=== PATIENT | female | born 1965 | race Two or more races ===

== ENCOUNTER 2024-09-18 00:31 | Inpatient (IN) | payer MEDICARE, MEDICAID, SELFPAY ==
[2024-09-18] VITALS (22 sets, daily range): BP systolic 102–131; BP diastolic 62–96; PULSE 68–155; RESP 17–96; TEMP 36.6–38.9; O2SAT 93–98; BMI 29.0; BMI 30.3
--- NOTE | 2024-09-18 00:51 | EKG_ITS ---
[facility] Test Date: 2024-09-18 Pat Name: MECCA SHELTON Department: Room: - Gender: Female Promotions Representative: : 1965 Requested By: Ángel Polanco ([facility]) Order Number: [id number] Reading MD: Ángel Polanco ([facility]) Measurements Intervals [place] Rate: 98 P: 52 [place]: 144 QRS: 25 QRSD: 98 T: 2 QT: 367 QTc: 471 Interpretive Statements SINUS RHYTHM NONSPECIFIC T-WAVE ABNORMALITY Compared to ECG 11/05/2021 15:00:28 T-wave abnormality now present /store/S0/[id number]
--- NOTE | 2024-09-18 01:00 | XR_ITS ---
Examination: CT brain head without contrast. 2-D sagittal coronal reconstructions Date and time of exam:04/18/2020 0111 hrs. Indications: Onset headaches nausea vomiting today CTDI: vol (mGy):44:30 DLP: (mGycm):877 Technique: Multiple CT axial sections of the brain have been obtained, 5 mm slice thickness. Contrast has not been administered. 2-D sagittal, coronal reconstructions have been obtained Low dose protocols were performed. One or more of the following dose reduction techniques were used; automated exposure control, adjustment of the mA and/or KV according to patient size, use of iterative reconstruction technique. Findings: No significant ventricular enlargement. Intra-axial or extra-axial hemorrhage density is not seen. No mass effect or midline shift Basal cisterns are not remarkable. Fourth ventricle is midline. Cranial vault intact. Impression: Negative for acute hemorrhage, mass effect or midline shift Advise clinical correlation follow-up accordingly
--- NOTE | 2024-09-18 01:01 | PD.EDRME ---
Rapid Medical Screening Exam RME Arrival date/time: 09/18/24 00:31 51-year-old female presents emergency department complaining of headache and vomiting since yesterday. Chief Complaint: Headache Time Seen by Provider: 09/18/24 00:34 Vital signs: Vital Signs Temperature 98.2 F 09/18/24 00:49 Pulse Rate 155 H 09/18/24 00:49 Respiratory Rate 18 09/18/24 00:49 Blood Pressure 124/76 09/18/24 00:49 Pulse Oximetry (%) 97 09/18/24 00:49 Oxygen Delivery Method Room Air 09/18/24 00:49 Vital signs reviewed by provider: Yes
[2024-09-18] MEDS: ONDANSETRON ODT 4 MG TABRAP PO (01:17)
[2024-09-18 01:33] LABS: Basophils % (Auto) 0 % (0-2.5); Eosinophils % (Auto) 0 % (0-10); Hematocrit 41.4 % (36.0-46.0); Hemoglobin 14.9 g/dL (12.0-16.0); Immature Granulocytes % (Auto) 0 % (0-0); Immature Granulocytes Auto 0.05 Thou/mm3 (0.00-0.00); Lymphocytes # (Auto) 1.4 Thou/mm3 (1.0-4.8); Lymphocytes % (Auto) 9 % (10-50); Mean Corpuscular Volume 86 fL (80-100); Monocytes # (Auto) 0.9 Thou/mm3 (0.0-0.8); Monocytes % (Auto) 6 % (0-12); Neutrophils # (Auto) 13.8 Thou/mm3 (1.8-7.7); Neutrophils % (Auto) 85 % (37-80); Nucleated Red Blood Cell % 0 /100 WBC (0); Platelet Count 197 Thou/mm3 (140-440); RDW Standard Deviation 38.3 fL (36.4-46.3); White Blood Count 16.1 Thou/mm3 (3.6-11.0)
--- NOTE | 2024-09-18 01:37 | PRELIM_ITS ---
CT scan of the head without intravenous contrast (axial sections with sagittal and coronal reformats) . September 18, 2024 0111 hoursClinical History: Headache with vomiting.No prior study is available for comparison. Findings:The evaluation is slightly limited due to motion artifact. No definitive eviden ce of intracranial hemorrhage, mass effect or midline shift. The ventricles and CSF spaces are unrema rkable. The calvarium is unremarkable. The mastoid air cells and the visualized paranasal sinuses are clear.Impression:No definitive evidence of intracranial hemorrhage, mass effect or midline shift.Oth er findings as described above. Suggest clinical correlation and follow up accordingly. Report Elec tronically Signed By: Sukhdev Apodaca 09/18/2024 1:37:13 AM [EST]
[2024-09-18 01:45] LABS: Alanine Aminotransferase 14 U/L (10-49); Albumin, Serum 4.6 gm/dL (3.5-5.0); Albumin/Globulin Ratio 1.8 (1.2-2.2); Alkaline Phosphatase 91 U/L (46-116); Anion Gap 10 (7-16); Aspartate Amino Transferase 21 U/L (0-34); BUN/Creatinine Ratio 11 Ratio (12-20); Bilirubin,Total 1.5 mg/dL (0.3-1.2); Blood Urea Nitrogen 9 mg/dL (9-23); Calcium 9.8 mg/dL (8.3-10.6); Calcium (Corrected) 9.8 mg/dL (8.5-10.1); Carbon Dioxide 25.3 mMol/L (20.0-31.0); Chloride 104 mMol/L (98-107); Creatinine (Component) 0.8 mg/dL (0.6-1.3); Estimated Creatinine Clearance 70.4 mL/min (>60); Globulin 2.6 gm/dL (2.3-3.5); Glucose 177 mg/dL (74-106); Lipase 27 U/L (12-53); Osmolality,Calculated 280 (275-295); Potassium 3.5 mMol/L (3.4-5.1); Sodium 139 mMol/L (136-145); Total Protein 7.2 gm/dL (5.7-8.2); eGFR > 60 See Note
[2024-09-18 02:21] LABS: Collection Type, Urine Clean Catch
[2024-09-18 02:29] LABS: Bacteria,Urine 3+; Bilirubin,Urine Negative (Negative); Blood,Urine 1+ (Negative); Clarity,Urine Turbid (Clear/Hazy); Color,Urine Yellow (Lt Yel-Yel); Culture Indicated,Urine Yes; Glucose, Urine Negative (Negative); Ketones,Urine 1+ (Negative); Leukocyte Esterase,Urine Positive (Negative); Nitrite,Urine Positive (Negative); PH,Urine 6.5 (5.0-7.0); Protein,Urine 2+ (Neg - Trace); RBC,Urine 34 /hpf (0-3); Specific Gravity,Urine 1.019 (1.001-1.035); Squamous Epithelial Cell,Urine 3 /hpf (0-5); Urobilinogen,Urine Negative mg/dL (0.0-1.0); WBC,Urine 158 /hpf (0-5)
[2024-09-18 02:36] LABS: Amphetamine/Methamp Scrn,U Negative (Negative); Barbiturate Screen,Urine Negative (Negative); Benzodiazepines Screen,Urine Negative (Negative); Benzoylecgonine Screen, Ur Negative (Negative); Fentanyl Screen,Urine Negative (Negative); Opiate Screen,Urine Negative (Negative); THC Screen,Urine Negative (Negative)
--- NOTE | 2024-09-18 04:30 | EDNOTE_ITS ---
ED Headache RME/HPI General Chief Complaint: Headache Stated Complaint: HEADACHE,N/V SINCE YEST Time Seen by Provider: 09/18/24 00:34 Arrival date/time: 09/18/24 00:31 Limitations: no limitations RME / HPI RME / HPI Narrative: 09/18/24 00:31 51-year-old female presents emergency department complaining of headache and vomiting since yesterday. ----- Dr. Allen's Main ED Evaluation: 58yo female with pmhx HTN presents to the ED for complaints of a headache and vomiting. Patient states she's had a frontal headache for the last 2-3 days, reporting she had 3 emetic episodes at home yes terday. She endorses associated burning with urination and body aches since Tuesday. She denies any back pain, abdominal pain or any other associated symptoms. No known allergies. Related Data Home Medications ?Medication ?Instructions ?Recorded ?Confirmed fluoxetine 20 mg capsule (Prozac) 20 mg PO QAM #0 caps 08/01/17 Previous Rx's ?Medication ?Instructions ?Recorded lorazepam 1 mg tablet 1 mg PO TID PRN ANXIETY #30 tabs 09/03/15 benzonatate 200 mg capsule 200 mg PO BID PRN cough #30 caps 11/05/21 hydrocodone 5 mg-acetaminophen 325 1 tab PO Q6H PRN pain #10 tabs 12/18/23 mg tablet cephalexin 500 mg capsule 500 mg PO TID #21 caps 09/18/24 Allergies Allergy/AdvReac Type Severity Reaction Status Date / Time No Known Allergies Allergy Verified 09/18/24 00:35 Review of Systems Review of Systems Systems Reviewed: All systems reviewed, normal except as documented Past Medical History Past Medical History CARDIAC: Positive Hypertension; Negative Cardiac Disorders or Congestive Heart Failure RESPIRATORY: Negative Chronic Obstructive Pulmonary Disease (COPD) or Asthma GENITOURINARY: Negative Renal Disease ENDOCRINE: Negative Diabetes Mellitus Type 1 or Diabetes Mellitus Type 2 HEMATOLOGIC: Negative Sickle Cell Disease Social History SMOKING STATUS: Never smoker ED Exam General Limitations: Present no limitations General appearance: Present alert, in no apparent distress and other (appears fatigued) Head Head exam: Present atraumatic Eye Eye exam: Present PERRL, EOMI and other (eyes are sunken in, no photophobia) ENT ENT exam: Present normal exam, normal oropharynx and mucous membranes dry Neck Neck exam: Present normal inspection, full ROM and trachea midline Chest Chest inspection: Present normal inspection and symmetric chest wall rise Respiratory Respiratory exam: Present normal lung sounds bilaterally Cardiovascular Cardiovascular exam: Present normal rhythm, tachycardia and normal heart sounds Abdominal Exam Abdominal exam: Present soft and normal bowel sounds Extremities Exam Extremities exam: Present normal inspection and full ROM Back Exam Back exam: Present normal inspection and full ROM; Absent CVA tenderness (R) or CVA tenderness (L) Neurological Exam Neurological exam: Present alert, oriented X3 and CN II-XII intact Psychiatric Psychiatric exam: Present normal affect and normal mood Skin Skin exam: Present warm, dry, intact, normal color and other (normal skin turgor, normal cap refill) Course Course Course Narrative: 0536: Sepsis alert initiated. Orders made at this time are congruent with ED Adult Sepsis Order List. Re-evaluation is to be completed. NS IVF was started at 0459. CXR is ordered for determining the etiology of fever. Quality Measures Possible source: genitourinary Blood cultures ordered: yes Antibiotic ordered: Yes Pertinent labs: 09/18/24 06:00 Lactic Acid 0.8 mMol/L (0.4-2.0) Procalcitonin Pending sepsis Orders Category Date Time Status Bedside Influenza A&B Antigen Test NOW Care 09/18/24 01:01 Completed Architectural Project Manager STAT Care 09/18/24 05:34 Active Continuous Pulse Oximetry STAT Care 09/18/24 05:35 Active EKG (ED ONLY) *Do not use* NOW Care 09/18/24 00:51 Completed In and Out Catheter X1PRN Care 09/18/24 05:34 Active NPO STAT Care 09/18/24 05:35 Active Strict Intake and Output Routine Care 09/18/24 05:[address] head/brain wo con Stat Exams 09/18/24 01:00 Taken EKG (ED Only) Stat Exams 09/18/24 00:51 Ordered XR chest 1V SEPSIS PROTOCOL Stat Exams 09/18/24 05:36 Taken B-Type Natriuretic Peptide Stat Lab 09/18/24 06:00 Received Blood Culture (Lab) Stat Lab 09/18/24 06:00 Received CBC Stat Lab 09/18/24 01:17 Completed CMP [Comprehensive Metabolic Panel] Stat Lab 09/18/24 01:17 Completed Drug Screen,Urine Stat Lab 09/18/24 02:00 Completed LDH (Lactate Dehydrogenase) Stat Lab 09/18/24 06:00 Received Lactate (Lactic Acid) Stat Lab 09/18/24 06:00 Completed Lipase Stat Lab 09/18/24 01:17 Completed Magnesium Stat Lab 09/18/24 06:00 Received Partial Thromboplastin Time Stat Lab 09/18/24 06:00 Received Phosphorous Stat Lab 09/18/24 06:00 Received Procalcitonin Stat Lab 09/18/24 06:00 Received Prothrombin Time with INR Stat Lab 09/18/24 06:00 Received Troponin I Stat Lab 09/18/24 06:00 Received Urinalysis Stat Lab 09/18/24 05:34 Ordered Urinalysis, C/S if Indicated Stat Lab 09/18/24 02:00 Completed Urine Culture Stat Lab 09/18/24 02:00 Received Urine Culture Stat Lab 09/18/24 05:34 Ordered Acetaminophen Tab [Tylenol Tab] Med 09/18/24 05:29 Discontinued 650 mg PO X1 ONE DiphenhydrAMINE INJ [Benadryl Inj] Med 09/18/24 04:30 Discontinued 25 mg IVP X1 ONE Ketorolac Inj [Toradol Inj] Med 09/18/24 04:30 Discontinued 30 mg IVP X1 ONE Metoclopramide Inj [Reglan Inj] Med 09/18/24 04:31 Discontinued 5 mg IVP X1 ONE Ondansetron Inj [Zofran Inj] Med 09/18/24 05:34 Active 4 mg IV Q6HR PRN Ondansetron Inj [Zofran Inj] Med 09/18/24 04:32 Discontinued 4 mg IV X1 ONE Ondansetron Odt [Zofran Odt] Med 09/18/24 01:00 Discontinued 4 mg PO X1 ONE Sodium Chloride 0.9% 1000 ml [Ns] 1,000 ml Med 09/18/24 04:30 Discontinued IV 999 mls/hr Sodium Chloride 0.9% 1000 ml [Ns] 1,503 ml Med 09/18/24 05:34 Active IV 1,503 mls/hr cefTRIAXone [Rocephin] 1,000 mg Med 09/18/24 05:34 Discontinued Sodium Chloride 0.9% (P) [Ns 0.9% (P)] 50 ml IV X1 cefTRIAXone [Rocephin] 1,000 mg Med 09/18/24 04:31 Discontinued Sodium Chloride 0.9% [Ns] 50 ml IV X1 Vital Signs Vital signs: Vital Signs Temperature 98.2 F 09/18/24 00:49 Pulse Rate 155 H 09/18/24 00:49 Respiratory Rate 18 09/18/24 00:49 Blood Pressure 124/76 09/18/24 00:49 Pulse Oximetry (%) 97 09/18/24 00:49 Oxygen Delivery Method Room Air 09/18/24 00:49 Pulse ox is 97% on room air, which is normal according to my interpretation. Headache Patient data External records reviewed:: [facility] previous records (Per chart review, patient has no relevant previous ED visits.) Clinical information provided by:: patient Social determinants that could affect healthcare access:: none Patient has the following chronic illnesses:: HTN How is presenting disease/condition affected by chronic disease/condition?: uneffected by Evaluation data The following diagnostics were reviewed and interpreted by me:: lab results, radiology exam(s) and EKG tracing(s) Lab and/or radiology exams considered but not ordered:: none Interpretation Summary: WBC count is elevated at 16.1, CMP is normal, Lipase is normal, UA is positive for a UTI, UDS is negative, according to my interpretation. EKG done at 0105, sinus tachycardia, rate of 133, incomplete RBBB, no ST elevations or depressions, QTc is normal, no STEMI, according to my interpretation. ------- [facility] Preliminary Report Draft Patient: MECCA SHELTON. Record#: [id number] Birthdate: 1965 Age/Sex: 58 / F Location: [facility] Attending Dr: Ordering Physician: Date of Service: Procedure(s): Accession Number(s): cc: ~ CT scan of the head without intravenous contrast (axial sections with sagittal and coronal reformats). September 18, 2024 0111 hours Clinical History: Headache with vomiting. No prior study is available for comparison. Findings: The evaluation is slightly limited due to motion artifact. No definitive evidence of intracranial hemorrhage, mass effect or midline shift. The ventricles and CSF spaces are unremarkable. The calvarium is unremarkable. The mastoid air cells and the visualized paranasal sinuses are clear. Impression: No definitive evidence of intracranial hemorrhage, mass effect or midline shift. Other findings as described above. Suggest clinical correlation and follow up accordingly. Report Electronically Signed By: Sukhdev Apodaca 09/18/2024 1:37:13 AM [EST] Medications / Prescriptions Medications or Prescriptions considered but not ordered:: none Medication administrations:: Medication Administration History Sodium Chloride (Ns) 1,503 mls @ 1,503 mls/hr 30 ml/kg infuse over 60 min (1503 ml) IV .Q1H ONE Stop: 09/18/24 06:33 Ondansetron HCl (Ondansetron Inj 2 Mg/Ml Inj 2 Ml) 4 mg IV Q6HR PRN PRN Reason: NAUSEA OR VOMITING Stop: 10/18/24 05:33 Discontinued Medications Acetaminophen (Acetaminophen 325 Mg Tablet) 650 mg PO X1 ONE Stop: 09/18/24 05:30 Diphenhydramine HCl (Diphenhydramine Inj 50 Mg/Ml Vial) 25 mg IVP X1 ONE Stop: 09/18/24 04:31 Last Admin: 09/18/24 04:58 Dose: 25 mg Documented By: ELENA Sodium Chloride (Ns) 1,000 mls @ 999 mls/hr IV .Q1H1M ONE Stop: 09/18/24 05:30 Last Admin: 09/18/24 04:59 Dose: 999 mls/hr Documented By: ELENA Ceftriaxone Sodium 1,000 mg/ (Sodium Chloride) 50 mls @ 100 mls/hr IV X1 ONE Stop: 09/18/24 05:00 Last Admin: 09/18/24 04:59 Dose: 100 mls/hr Documented By: ELENA Ceftriaxone Sodium 1,000 mg/ (Sodium Chloride) 50 mls @ 100 mls/hr IV X1 ONE Stop: 09/18/24 06:03 Ketorolac Tromethamine (Ketorolac Inj 30 Mg/Ml Vial) 30 mg IVP X1 ONE Stop: 09/18/24 04:31 Last Admin: 09/18/24 04:58 Dose: 30 mg Documented By: ELENA Metoclopramide HCl (Metoclopramide Inj 5 Mg/Ml Vial 2 Ml) 5 mg IVP X1 ONE; Protocol Stop: 09/18/24 04:32 Last Admin: 09/18/24 05:00 Dose: 5 mg Documented By: ELENA Ondansetron HCl (Ondansetron Odt 4 Mg Tabrap) 4 mg PO X1 ONE; Protocol Stop: 09/18/24 01:01 Last Admin: 09/18/24 01:17 Dose: 4 mg Documented By: FLO Ondansetron HCl (Ondansetron Inj 2 Mg/Ml Inj 2 Ml) 4 mg IV X1 ONE; Protocol Stop: 09/18/24 04:33 Last Admin: 09/18/24 05:14 Dose: 4 mg Documented By: ELENA see above Consultations Consultation(s) initiated? (list below): No Diagnosis Differential diagnosis headache: other (sepsis, UTI, pyelonephritis, dehydration, electrolyte) Most likely diagnosis given after review of the tests above:: see below Admission Indicated Admission indicated?: not indicated Admission Request Was there a request for admission?: No Disposition Plan Disposition Plan: other (specify) (Signed out to Dr. Villarreal at 0600 pending additional labs, IVF, and re-evaluation.) Discharge Plan Prescriptions/Referrals Prescriptions/Med Rec: New cephalexin 500 mg capsule 500 mg PO TID Qty: 21 0RF No Action lorazepam 1 MG tablet 1 mg PO TID PRN (Reason: ANXIETY) Qty: 30 0RF fluoxetine [Prozac] 20 MG capsule 20 mg PO QAM Qty: 0 benzonatate 200 mg capsule 200 mg PO BID PRN (Reason: cough) Qty: 30 0RF hydrocodone-acetaminophen 5-325 mg tablet 1 tab PO Q6H MDD 3 PRN (Reason: pain) Qty: 10 0RF Referrals: Homar Hernandez MD [Primary Care Provider] - In 1 week Problem List Clinical Impression: UTI (urinary tract infection) Patient/Caregiver Discharge Instructions Print Language: Kyrgyz
--- NOTE | 2024-09-18 04:44 | PC.NURSE ---
pt resituated. new linen. vitals taken. ice chips given. RN at bedside
[2024-09-18] MEDS: KETOROLAC INJ 30 MG/ML VIAL IVP (04:58)
[2024-09-18] MEDS: DiphenhydrAMINE INJ 50 MG/ML VIAL 25 MG IVP (04:58)
[2024-09-18] MEDS: SODIUM CHLORIDE 0.9% 1000 ML 1,000 ML 999 ML IV (04:59)
[2024-09-18] MEDS: METOCLOPRAMIDE INJ 5 MG/ML VIAL 2 ML IVP ×2 (05:00→18:12)
[2024-09-18] MEDS: ONDANSETRON INJ 2 MG/ML INJ 2 ML 4 MG IV ×2 (05:14→12:02)
--- NOTE | 2024-09-18 05:36 | XR_ITS ---
Examination: AP chest single view Technique one AP portable upright chest single view Exam date and time: September 18, 2024 0557 hrs. Indications: Sepsis protocol Findings: Early pneumonia right base obscuring detail lateral portion right hemidiaphragm Left lung clear Normal heart size Moderate osteopenia Impression: Early pneumonia right base
[2024-09-18 06:10] LABS: Lactate (Lactic Acid) 0.8 mMol/L (0.4-2.0)
[2024-09-18] MEDS: SODIUM CHLORIDE 0.9% 1000 ML 1,503 ML 1503 ML IV (06:21)
[2024-09-18] MEDS: ACETAMINOPHEN 325 MG TABLET 650 MG PO (06:23)
[2024-09-18 06:33] LABS: B-Type Natriuretic Peptide 70 pg/mL (0-100)
[2024-09-18 06:41] LABS: INR 1.1 (0.9-1.3); Partial Thromboplastin Time 26.7 Seconds (22.0-36.0); Prothrombin Time 11.8 Seconds (9.0-12.2)
[2024-09-18 06:43] LABS: Magnesium 1.7 mg/dL (1.6-2.6); Phosphorous 2.7 mg/dL (2.4-5.1); Procalcitonin 0.41 ng/ml (0.0-0.49); Troponin I < 0.020 ng/mL (0.0-0.045)
[2024-09-18 06:56] LABS: LDH (Lactate Dehydrogenase) 111 U/L (120-246)
--- NOTE | 2024-09-18 09:53 | EDNOTE_ITS ---
Emergency Room Addendum <Laurel Gonzalez - Last Filed: 09/18/24 09:54> Addendum Narrative: 0600: Care assumed from Dr. Allen, the previous shift emergency physician. Past medical, surgical, social and family history reviewed. Vitals and home medications reviewed. I will assume the care of the patient at this time, pending remainder of labs and reassessment. Please refer to the emergency department record for history and examination from initial visit.? EMS notes reviewed by me. Nursing notes reviewed by me. Vital signs reviewed by me. [place] medical records reviewed by me. <Ben Villarreal MD - Last Filed: 09/18/24 11:56> Addendum Narrative: 0600: Care assumed from Dr. Allen, the previous shift emergency physician. Past medical, surgical, social and family history reviewed. Vitals and home medications reviewed. I will assume the care of the patient at this time, pending remainder of labs and reassessment. Please refer to the emergency department record for history and examination from initial visit.? EMS notes reviewed by me. Nursing notes reviewed by me. Vital signs reviewed by me. [place] medical records reviewed by me. Family back in the room evaluated this patient she is a 58-year-old who comes in with fever has a history of frequent urinary tract infections. She was feeling better after initial fluids she also got a dose of Rocephin to cover for possible sepsis. Medical workup came back with a white count of 16.1 which is slightly elevated hemoglobin is 14.9. PT/INR within normal limits. Electrolytes are within normal limits BUN is 9 creatinine 0.8. Total bilirubin slightly elevated 1.5 with a baseline at 0.9 of uncertain significance. Urinalysis came back positive for 158 white blood cells 34 red cells and lots of bacteria consistent with urinary tract infection. Urine drug screen came back negative. Chest x-ray is read by the radiology having a questionable minimal right lower lobe pneumonia honestly it is quite insignificant on my evaluation. And CT of the head was done to evaluate headache which is negative. Also on reevaluation patient smiling headache is currently quite comfortable. Reevaluation of the patient several times showed the patient to be improving but at about 1030 shows the patient be feeling better minimal headache drinking water without vomiting. But then soon after that she began having shaking chills rigors and her temperatures back up to 101 and she is feeling nauseated again presumably she is got pyelonephritis and therefore we will admit her due to she has systemic symptoms so she can continue her Rocephin and fluids. Dr. Dao the resident was contacted and they will be admitting.
[2024-09-18 10:16] LABS: Collection Type, Urine Clean Catch
--- NOTE | 2024-09-18 10:28 | PC.NURSE ---
Patient provided with a cup of water and able to hold it all down, also, road tested patient around the nurses station, patient had no c/o sob or dizziness, Dr. Villarreal made aware.
[2024-09-18 10:31] LABS: Bilirubin,Urine Negative (Negative); Blood,Urine Trace (Negative); Clarity,Urine Clear (Clear/Hazy); Color,Urine Lt-Yellow (Lt Yel-Yel); Glucose, Urine Negative (Negative); Ketones,Urine Negative (Negative); Leukocyte Esterase,Urine Positive (Negative); Nitrite,Urine Positive (Negative); PH,Urine 6.5 (5.0-7.0); Protein,Urine Trace (Neg - Trace); RBC,Urine 2 /hpf (0-3); Specific Gravity,Urine 1.013 (1.001-1.035); Squamous Epithelial Cell,Urine 1 /hpf (0-5); Urobilinogen,Urine Negative mg/dL (0.0-1.0); WBC,Urine 64 /hpf (0-5)
[2024-09-18] MEDS: ACETAMINOPHEN 325 MG TABLET 1000 MG PO (11:30)
[2024-09-18] MEDS: MORPHINE SULF INJ 10 MG/ML VIAL 4 MG IVP (12:03)
--- NOTE | 2024-09-18 12:06 | PC.NURSE ---
DR. MARKHAM AT BEDSIDE ASSESSING & TALKING TO PT.
--- NOTE | 2024-09-18 12:38 | XR_ITS ---
Examination: CT abdomen and pelvis without contrast. Coronal 3-D reconstructions. Sagittal 2-D reconstructions. Date and time of exam:September 18, 2024 1318 hours INDICATIONS: Nausea vomiting abdominal pain today, clinical diagnosis pyelonephritis CTDI: vol (mGy): 9.14 DLP: (mGycm): 528 Technique: Axial images of the abdomen have been obtained, 3 mm slice thickness Intravenous contrast material has not been administered. Low dose protocols were performed. One or more of the following dose reduction techniques were used; automated exposure control, adjustment of the mA and/or KV according to patient size, use of iterative reconstruction technique. Findings: No focal liver or splenic lesions Absent gallbladder No pancreatic or adrenal mass Edematous appearing right kidney with perinephric stranding No renal or ureteral calculi Wall thickening right ureter No bowel obstruction Normal appendix No diverticulitis Tiny air droplets in the urinary bladder No pelvic mass IMPRESSION: Findings most consistent with right pyelonephritis
--- NOTE | 2024-09-18 12:43 | EKG_ITS ---
[facility] Test Date: 2024-09-18 Pat Name: MECCA SHELTON Department: Room: - Gender: Female Garment [employer]amer: [facility] : 1965 Requested By: Wagner Valdez Order Number: [id number] Reading MD: Wagner Valdez Measurements Intervals [place] Rate: 101 P: 36 UT: 148 QRS: 8 QRSD: 96 T: -9 QT: 383 QTc: 498 Interpretive Statements SINUS TACHYCARDIA NONSPECIFIC T-WAVE ABNORMALITY ABNORMAL RHYTHM ECG Compared to ECG 09/18/2024 15:14:38 Sinus rhythm no longer present T-wave abnormality still present /store/S0/[id number]/[id number]
--- NOTE | 2024-09-18 12:46 | ESHP_ITS ---
<Statement entered by Stephanie Agee MD - 09/29/24 13:37> I reviewed above note and agree with findings and plans. I have also personally examined the patient with medicine team and went over assessment and plan with medical team including environmental health and safety intern and resident physician. Documentation for date of: 09/18/24 HPI History of Present Illness Chief complaint: dysuria, N/V History of present illness: 58-year-old female with past medical history of frequent UTIs, hypertension, depression, anxiety, GERD, DM2, and fusion of cervical spine was admitted to the hospital on 09/18/2024 after coming to the ED with complaints of subjective fevers, headaches, and vomiting as well as burning sensation when she urinates. During assessment patient stated that she normally has a little UTIs, but that she goes to her primary care physician who prescribes her antibiotics. She stated that her symptoms started Tuesday with nausea vomiting, burning sensation with urination, suprapubic pain, and frontal headaches. She mentioned that she went to her primary care physician's office, but that the office was closed due to the holidays. She decided to come to the ER left send she was given 2.5 L bolus of fluids and Rocephin. She stated that she has been worked up by specialist for frequent UTIs, but that everything has been normal as per patient. She says she also had some flank pain sometimes during these few days, but it has not been constant. She denied any blood in the urine, being sexually active, or any recent travel. ED course: Initially patient came in tachycardic and afebrile, but this morning patient was tachycardic and febrile. Initial labs were relevant for leukocytosis (16.1), mild hyperbilirubinemia (1.5), and UA was positive for bacteria. Initial imaging included chest x-ray which showed some right base pneumonia and head CT which was unremarkable. In the ED patient received 1 dose of ceftriaxone as well as 2.5 L NS bolus. PMH: As above Social Hx: Denies any smoking, drugs, and admits to social drinking Surgical Hx: Cervical spine fusion and cholecystectomy Review of Systems Review of Systems Narrative Review of Systems: Constitutional: Denies sweats, Denies weight loss/gain, Admits fever, Admits chills. HEENT: Denies hearing loss, Denies ear pain, Denies postnasal drip, Denies double vision, Denies blurry vision. Respiratory: Denies shortness of breath, Denies cough, Denies wheezing. Cardiovascular: Denies chest pain, Denies palpitations, Denies sudden loss of consciousness. GI: Denies blood in stool, Denies constipation, Admits abdominal pain, Denies difficulty swallowing, Admits nausea and vomit. : Denies urinary incontinence, Admits pain while urinating, Denies increased urinary frequency. MSK: Denies joint pain, Denies joint swelling, Denies numbness. Skin: Denies rash, Denies itching, Denies easy bruising. Neuro: Admits headaches, Denies dizziness, Denies seizures. Past Medical History Past Medical History CARDIAC: Positive Hypertension; Negative Cardiac Disorders or Congestive Heart Failure RESPIRATORY: Negative Chronic Obstructive Pulmonary Disease (COPD) or Asthma GENITOURINARY: Negative Renal Disease ENDOCRINE: Negative Diabetes Mellitus Type 1 or Diabetes Mellitus Type 2 HEMATOLOGIC: Negative Sickle Cell Disease Social History SMOKING STATUS: Never smoker Exam Vital Signs Temp Pulse Resp BP Pulse Ox O2 Del Method 101.0 F H 104 H 20 131/87 H 95 Room Air 09/18/24 12:24 09/18/24 12:39 09/18/24 12:39 09/18/24 12:24 09/18/24 12:24 09/18/24 12:24 Narrative Exam General: A/O x3, mild distress, chivering, well-nourished, well-developed Eyes: PERRL, EOMI. Anicteric, vision grossly intact. Ears: No ear pain, no ear discharge, Hearing grossly intact. Nose: No nasal discharge. Mouth/Throat: Moist mucous membranes, no redness, no lesions. Neck: Neck supple, non-tender, no cervical lymphadenopathy. Lungs: Clear TIKI to auscultation and percussion, No accessory muscle use. Cardio: Normal S1/S2, regular rhythm, no murmurs, no JVD Abdomen: Soft, supra pubic area tender, no palpable masses, peristalsis present, no guarding or rebound. Extremities: Symmetrical, no significant deformities, no peripheral edema , non-tender, peripheral pulses presents. Skin: No rashes, no lesions, warm to touch. Neuro: No focal neurological deficits. motor and sensory intact Psych: Cooperative, appropriate mood and effect. Results: Labs 09/18/24 01:17 09/18/24 01:17 Labs: Short CBC 09/18/24 Range/Units 01:17 WBC 16.1 H (3.6-11.0) Thou/mm3 Hgb 14.9 (12.0-16.0) g/dL Hct 41.4 (36.0-46.0) % Plt Count 197 (140-440) Thou/mm3 BMP 09/18/24 01:17 Sodium 139 Potassium 3.5 Chloride 104 Carbon Dioxide 25.3 BUN 9 Creatinine 0.8 Glucose 177 H Calcium 9.8 Cardiac Enzymes 09/18/24 Range/Units 06:00 Troponin I < 0.020 (0.0-0.045) ng/mL Liver Function 09/18/24 Range/Units 01:17 Total Bilirubin 1.5 H (0.3-1.2) mg/dL AST 21 (0-34) U/L ALT 14 (10-49) U/L Alkaline Phosphatase 91 (46-116) U/L Albumin 4.6 (3.5-5.0) gm/dL Urine 09/18/24 09/18/24 Range/Units 02:00 10:05 Urine Color Yellow Lt-Yellow (Lt Yel-Yel) Urine Clarity Turbid A Clear (Clear/Hazy) Urine pH 6.5 6.5 (5.0-7.0) Ur Specific [place] 1.019 1.013 (1.001-1.035) Urine Protein 2+ A Trace (Neg - Trace) Urine Glucose (UA) Negative Negative (Negative) Quality Measures Quality Measures sepsis Current suspected stage: ruled out Possible source: genitourinary Blood cultures ordered: yes Antibiotic ordered: Yes Medications Home Medications and Allergies Home Medications ?Medication ?Instructions ?Recorded ?Confirmed ?Type fluoxetine 20 mg capsule (Prozac) 20 mg PO QAM #0 caps 08/01/17 History Allergies Allergy/AdvReac Type Severity Reaction Status Date / Time No Known Allergies Allergy Verified 09/18/24 00:35 Visit Medications Acetaminophen (Acetaminophen 325 Mg Tablet) 650 mg PO Q6H PRN PRN Reason: paiN(1-3) and Fever >100.4 Stop: 10/18/24 12:21 Hydrocodone Bitart/Acetaminophen (Hydrocodone/Apap 5/325 Tablet) 1 tab PO Q4HR PRN PRN Reason: PAIN SCALE 4-10(Mod-Sev Stop: 09/23/24 12:21 Dextrose (Dextrose 50%-Water Inj 50 Ml Syringe) 25 ml IV Q15MIN PRN PRN Reason: BG 50-70 responsive npo pt Stop: 10/18/24 12:21 Dextrose (Dextrose 50%-Water Inj 50 Ml Syringe) 50 ml IV Q15MIN PRN PRN Reason: BG <50 OR BG <70 & pt unresponsive Stop: 10/18/24 12:21 Glucagon (Glucagon Inj 1 Mg Vial) 1 mg IM Q15MIN PRN PRN Reason: BG <70, and no IV access Ceftriaxone Sodium/Dextrose (Rocephin/D5w 1gm Iv Premix) 50 mls @ 100 mls/hr IV QDAY MARIAH Stop: 09/26/24 08:59 Lactated Ringer's (Lactated Ringers) 1,000 mls @ 75 mls/hr IV .[id number] MARIAH Stop: 10/18/24 12:44 Insulin Human Lispro (Insulin Lispro (Admelog) 1 Unit/0.01 Ml Unit) 0 unit SC AC MARIAH; Protocol Stop: 10/18/24 16:59 Ondansetron HCl (Ondansetron Inj 2 Mg/Ml Inj 2 Ml) 4 mg IV Q6H PRN; Protocol PRN Reason: NAUSEA OR VOMITING Stop: 10/18/24 12:21 Pantoprazole Sodium (Pantoprazole Inj 40 Mg Vial) 40 mg IVP QDAY MARIAH Stop: 10/18/24 12:24 Sennosides (Senna Tablet) 1 tab PO QDAY PRN; Protocol PRN Reason: constipation Stop: 10/18/24 12:21 Discontinued Medications Acetaminophen (Acetaminophen 325 Mg Tablet) 650 mg PO X1 ONE Stop: 09/18/24 05:30 Last Admin: 09/18/24 06:23 Dose: 650 mg Acetaminophen (Acetaminophen 325 Mg Tablet) 1,000 mg PO X1 ONE Stop: 09/18/24 11:20 Last Admin: 09/18/24 11:30 Dose: 1,000 mg Diphenhydramine HCl (Diphenhydramine Inj 50 Mg/Ml Vial) 25 mg IVP X1 ONE Stop: 09/18/24 04:31 Last Admin: 09/18/24 04:58 Dose: 25 mg Sodium Chloride (Ns) 1,000 mls @ 999 mls/hr IV .Q1H1M ONE Stop: 09/18/24 05:30 Last Infusion: 09/18/24 08:22 Dose: Infused Ceftriaxone Sodium 1,000 mg/ (Sodium Chloride) 50 mls @ 100 mls/hr IV X1 ONE Stop: 09/18/24 05:00 Last Infusion: 09/18/24 08:22 Dose: Infused Sodium Chloride (Ns) 1,503 mls @ 1,503 mls/hr 30 ml/kg infuse over 60 min (1503 ml) IV .Q1H ONE Stop: 09/18/24 06:33 Last Infusion: 09/18/24 08:22 Dose: Infused Ceftriaxone Sodium 1,000 mg/ (Sodium Chloride) 50 mls @ 100 mls/hr IV X1 ONE Stop: 09/18/24 06:03 Last Admin: 09/18/24 08:50 Dose: Not Given Ketorolac Tromethamine (Ketorolac Inj 30 Mg/Ml Vial) 30 mg IVP X1 ONE Stop: 09/18/24 04:31 Last Admin: 09/18/24 04:58 Dose: 30 mg Metoclopramide HCl (Metoclopramide Inj 5 Mg/Ml Vial 2 Ml) 5 mg IVP X1 ONE; Protocol Stop: 09/18/24 04:32 Last Admin: 09/18/24 05:00 Dose: 5 mg Morphine Sulfate (Morphine Sulf Inj 10 Mg/Ml Vial) 4 mg IVP X1 ONE Stop: 09/18/24 11:55 Last Admin: 09/18/24 12:03 Dose: 4 mg Ondansetron HCl (Ondansetron Odt 4 Mg Tabrap) 4 mg PO X1 ONE; Protocol Stop: 09/18/24 01:01 Last Admin: 09/18/24 01:17 Dose: 4 mg Ondansetron HCl (Ondansetron Inj 2 Mg/Ml Inj 2 Ml) 4 mg IV X1 ONE; Protocol Stop: 09/18/24 04:33 Last Admin: 09/18/24 05:14 Dose: 4 mg Ondansetron HCl (Ondansetron Inj 2 Mg/Ml Inj 2 Ml) 4 mg IV Q6HR PRN PRN Reason: NAUSEA OR VOMITING Stop: 10/18/24 05:33 Ondansetron HCl (Ondansetron Inj 2 Mg/Ml Inj 2 Ml) 4 mg IV X1 ONE; Protocol Stop: 09/18/24 11:55 Last Admin: 09/18/24 12:02 Dose: 4 mg Sodium Chloride (Sodium Chloride Rt 10% 15 Ml Nebu) 5 ml INH X1 ONE Stop: 09/18/24 12:23 Assessment & Plan Plan 58-year-old female with past medical history of recurrent UTIs, hypertension, depression, anxiety, GERD, DM2, and fusion of cervical spine was admitted to the hospital on 09/18/2024 for UTI with possible pyelonephritis. #UTI #R pyelonephritis #Leukocytosis #Hx of recurrent UTIs ?Patient came in with dysuria, suprapubic pain, and subjective fever. ? Patient met SIRS criteria 3 out of 4 with leukocytosis, tachycardia, and fever ? Patient does not have any endorgan damage at this time therefore it is less likely sepsis ? UA was positive for bacteria ?Patient got 2.5 L bolus in the ED and 1 g of Rocephin -CT abd/pelv showed changes consistent with R pyelonephritis. Plan: ? Rocephin 1 g daily [09/18/2024?] ?Blood cultures and urine cultures ordered ? Will continue to monitor #Intractable nausea and vomiting ?Patient has been having nausea and vomiting since Tuesday ? Mostly secondary to the suprapubic pain experienced with a UTI ?Patient got a total of 12 g of Zofran overnight and 5 g of metoclopramide ? Order EKG and showed Qtc 471 Plan: ?Stopped Zofran and Azithromycin due to QTc prolongation -Avoid QTc prolonging medications ? Will continue to monitor #Community-acquired pneumonia ? Patient denies any coughing or shortness of breath ? Chest x-ray that showed right base pneumonia -azithromycin x1 (stopped after EKG showed prolonged qtc) Plan: ?Continue Rocephin and doxycycline BID [09/18/2024?] ?Sputum cultures ordered ? Will continue to monitor #Hx of hypertension ? Patient's blood pressure has been stable during the hospital admission ? Hold off on antihypertensive medication for now in the setting of normotension and to avoid any shock #Hx of DM2 ?Patient's glucose was 177 on admission ? No A1c on file Plan: ? A1c for morning labs ?ISS ? Hypoglycemia protocol ordered ?Will continue to monitor #Hx of GERD ? Start Protonix #Hx of cervical spine fusion ? Pain management medication as needed ordered #Hx of anxiety and depression ? Will wait for medication reconciliation before starting patient's home medications. Disposition: Patient admitted to med surg for UTI continue Abx, avoid qtc prolonging meds. Diet: PUD/GERD GI prophylaxis: protonix DVT prophylaxis: SCDs Code: Full code Case disclosed with Attending Dr. Agee and My senior Dr. Dao PGY2. Wagner aVldez PGY1 Senior Resident Attestation: The patient is a 58-year-old female with significant past medical history of UTI, hypertension, depression, anxiety, GERD, diabetes mellitus type 2 on Ozempic, and fusion of cervical spine presented with chief complaint of subjective fevers, chills, nausea and vomiting, along with burning micturition was found to have UTI and Ozempic related adverse effect as nausea and vomiting. The patient also reported that her Ozempic dose was increased from 0.25 mg to 0.5 mg yesterday and after that she has been vomiting. In the ED she received 2.5 L bolus IV fluids along with Rocephin. Blood and urine cultures were sent. Magnesium and potassium were repleted in the setting of prolonged QTc to achieve goal of greater than 2 and greater than 4 respectively. Other labs were basically stable, with white count of 16.1. Physical exam was unremarkable. She was started on morphine 1 mg IV every 4 hourly as needed for headache or any pain. I discussed with and supervised the environmental health and safety intern physician involved in the care of this patient. I personally saw and examined the patient and discussed the assessment and plan with the entire medicine team, including my attending. I agree with the assessment and plan as documented above. Sukumar Dao MD PGY2 Internal Medicine
[2024-09-18] MEDS: RINGERS LACTATED 1000 ML 1,000 ML 75 ML IV (12:52)
[2024-09-18] MEDS: PANTOPRAZOLE INJ 40 MG VIAL IVP (12:52)
[2024-09-18] MEDS: AZITHROMYCIN INJ 500 MG in SODIUM CHLORIDE 0.9% 250 ML 250 ML 250 MG IV (14:10)
[2024-09-18] MEDS: HYDROcodone/APAP 5/325 TABLET 1 TAB PO (16:02)
[2024-09-18] MEDS: Magnesium Sulfate 4 GM Ivpb 4 GM/50 ML BAG IV (18:40)
[2024-09-18] MEDS: MORPHINE SULF INJ 10 MG/ML VIAL IVP (20:13)
[2024-09-18] MEDS: DOXYCYCLINE 100 MG TABLET PO (20:27)
[2024-09-18] MEDS: POTASSIUM CHL 10 mEq IVPB 10 MEQ/100 ML BAG 100 MEQ IV (20:29)
[2024-09-18] MEDS: POTASSIUM CHL 10 mEq IVPB 10 MEQ/100 ML BAG 50 MEQ IV (22:22)
[2024-09-19] VITALS (10 sets, daily range): BP systolic 104–141; BP diastolic 65–88; PULSE 90–116; RESP 16–95; TEMP 36.7–38.9; O2SAT 92–98
--- NOTE | 2024-09-19 00:22 | PC.NURSE ---
T=102.1- Reemoved thick blanket. Cooling measures applied.
[2024-09-19] MEDS: MORPHINE SULF INJ 10 MG/ML VIAL IVP ×3 (01:35→21:33)
[2024-09-19] MEDS: RINGERS LACTATED 1000 ML 1,000 ML 75 ML IV ×2 (01:59→19:43)
[2024-09-19 06:06] LABS: Basophils % (Auto) 0 % (0-2.5); Eosinophils % (Auto) 0 % (0-10); Hematocrit 34.9 % (36.0-46.0); Hemoglobin 12.2 g/dL (12.0-16.0); Immature Granulocytes % (Auto) 0 % (0-0); Immature Granulocytes Auto 0.03 Thou/mm3 (0.00-0.00); Lymphocytes # (Auto) 1.4 Thou/mm3 (1.0-4.8); Lymphocytes % (Auto) 12 % (10-50); Mean Corpuscular Hemoglobin 30.7 pg (25.0-35.0); Mean Corpuscular Volume 88 fL (80-100); Monocytes # (Auto) 0.7 Thou/mm3 (0.0-0.8); Monocytes % (Auto) 6 % (0-12); Neutrophils # (Auto) 9.3 Thou/mm3 (1.8-7.7); Neutrophils % (Auto) 81 % (37-80); Nucleated Red Blood Cell % 0 /100 WBC (0); Platelet Count 147 Thou/mm3 (140-440); RDW Standard Deviation 39.4 fL (36.4-46.3); Red Blood Count 3.97 Miln/mm3 (4.00-5.20); White Blood Count 11.5 Thou/mm3 (3.6-11.0)
[2024-09-19 06:22] LABS: Alanine Aminotransferase 36 U/L (10-49); Albumin, Serum 3.8 gm/dL (3.5-5.0); Albumin/Globulin Ratio 1.8 (1.2-2.2); Alkaline Phosphatase 88 U/L (46-116); Anion Gap 7 (7-16); Aspartate Amino Transferase 33 U/L (0-34); BUN/Creatinine Ratio 8 Ratio (12-20); Bilirubin,Total 0.9 mg/dL (0.3-1.2); Blood Urea Nitrogen 5 mg/dL (9-23); Calcium 8.4 mg/dL (8.3-10.6); Calcium (Corrected) 8.6 mg/dL (8.5-10.1); Carbon Dioxide 26.2 mMol/L (20.0-31.0); Cardiac Risk Estimate 2.9 RATIO (3.7-5.6); Chloride 102 mMol/L (98-107); Cholesterol 131 mg/dL (132-200); Creatinine (Component) 0.6 mg/dL (0.6-1.3); Estimated Creatinine Clearance 95.8 mL/min (>60); Globulin 2.1 gm/dL (2.3-3.5); Glucose 101 mg/dL (74-106); HDL Cholesterol 45 mg/dL (40-60); LDL Cholesterol,Calculated 74 mg/dL (0-130); Magnesium 1.8 mg/dL (1.6-2.6); Osmolality,Calculated 267 (275-295); Potassium 3.7 mMol/L (3.4-5.1); Sodium 135 mMol/L (136-145); Total Protein 5.9 gm/dL (5.7-8.2); Triglycerides 59 mg/dL (30-150); eGFR > 60 See Note
[2024-09-19] MEDS: KETOROLAC INJ 30 MG/ML VIAL 15 MG IVP ×2 (06:58→11:43)
[2024-09-19 07:06] LABS: Glucose Estimated Average 100 mg/dL (80-131); Hemoglobin A1C 5.1 % Hgb (4.8-6.0)
[2024-09-19] MEDS: PANTOPRAZOLE INJ 40 MG VIAL IVP (09:40)
[2024-09-19] MEDS: cefTRIAXone/D5w 1gm IV premix 50 ML IV (09:41)
[2024-09-19] MEDS: POTASSIUM CHLORIDE 20 mEq TABCR 40 MEQ PO (09:41)
[2024-09-19] MEDS: DOXYCYCLINE 100 MG TABLET PO ×2 (09:41→21:33)
--- NOTE | 2024-09-19 10:40 | EKG_ITS ---
[facility] Test Date: 2024-09-19 Pat Name: MECCA SHELTON [facility] Gender[facility] Female [employer]: MEAGHAN : 1965 Requested By: Mimi Carson Order Number: [id number] Reading MD: Mimi Carson Measurements Intervals [place] Rate: 83 P: 30 NV: 141 QRS: 14 QRSD: 101 T: 8 QT: 370 QTc: 436 Interpretive Statements SINUS RHYTHM NONSPECIFIC T-WAVE ABNORMALITY Compared to ECG 09/18/2024 19:31:02 Sinus tachycardia no longer present T-wave abnormality still present /store/S0/[id number]/[id number].pdf
[2024-09-19] MEDS: PROMETHAZINE INJ 12.5 MG in SODIUM CHLORIDE 0.9% 50 ML 101 MG IV (12:02)
--- NOTE | 2024-09-19 12:57 | PC.NURSE ---
pt says she's allergic to magnesium, I notified Dr. Dao, he says she tolerated the dose yesterday, so it's ok to give
[2024-09-19] MEDS: LACTULOSE SYRUP 20 GM/30 ML UDC PO (13:22)
--- NOTE | 2024-09-19 13:33 | PC.NURSE ---
I notified Dr. Dao that pt is refusing the IV Magnesium
--- NOTE | 2024-09-19 13:51 | PC.SS ---
Patient is alert/oriented. Patient resides alone. Admitted for UTI. Patient attempted to get an appt. since late last week but was unable to. Due to holiday, physician office closed. Patient states she is independent with ADL's. she states she drives herself to appointments. Patient states her daughter is her careprovider. She states she would like information on [facility] as her daughter would be interested in these hours. Patient states her p.c.p. is Dr. Hernandez @ [facility]. Last appt. was in July. Pharmacy: [facility]. Patient states she's been depressed a lot lately. SS discussed behavioral health clinic at [facility]. Patient to d/c home upon discharge. Patient alt medical decision maker is Claudia Wasserman, daughter,
--- NOTE | 2024-09-19 19:55 | PC.NURSE ---
T=101.7- Cooling measures applied.
--- NOTE | 2024-09-19 20:02 | ESPR_ITS ---
Documentation for date of: 09/19/24 Subjective Subjective Interval history: Overnight the patient reported left sided headache and was given ketorolac 15mg IV x1. This morning she reported her Lt sided headache coming back, and was given 1 more dose of toradol 15mg iv x1. She reporeted her nausea and vomiting being well controlled. She denied any urinary symptoms. Exam Vital Signs Temp Pulse Resp BP Pulse Ox O2 Del Method 98.4 F 96 17 138/84 H 95 Room Air 09/19/24 16:00 09/19/24 16:00 09/19/24 16:00 09/19/24 16:00 09/19/24 16:00 09/19/24 16:00 Narrative Exam General: A/O x3, mild distress, chivering, well-nourished, well-developed Eyes: PERRL, EOMI. Anicteric, vision grossly intact. Ears: No ear pain, no ear discharge, Hearing grossly intact. Nose: No nasal discharge. Mouth/Throat: Moist mucous membranes, no redness, no lesions. Neck: Neck supple, non-tender, no cervical lymphadenopathy. Lungs: Clear TIKI to auscultation and percussion, No accessory muscle use. Cardio: Normal S1/S2, regular rhythm, no murmurs, no JVD Abdomen: Soft, no supra pubic area tender, no palpable masses, peristalsis present, no guarding or rebound. Extremities: Symmetrical, no significant deformities, no peripheral edema , non-tender, peripheral pulses presents. Skin: No rashes, no lesions, warm to touch. Neuro: No focal neurological deficits. motor and sensory intact Psych: Cooperative, appropriate mood and effect. Objective Labs 09/20/24 04:49 09/20/24 04:49 Labs: Laboratory Results - last 24 hr 09/19/24 04:45 WBC 11.5 H RBC 3.97 L Hgb 12.2 D Hct 34.9 L MCV 88 MCH 30.7 MCHC 35.0 RDW Std Deviation 39.4 Plt Count 147 D Neut % (Auto) 81 H Lymph % (Auto) 12 [place] % (Auto) 6 Eos % (Auto) 0 Baso % (Auto) 0 Neut # (Auto) 9.3 H Lymph # (Auto) 1.4 [place] # (Auto) 0.7 Eos # (Auto) 0.0 Baso # (Auto) 0.0 Immature Gran # (Auto) 0.03 H Absolute Nucleated RBC 0.00 Immature Gran % 0 Nucleated RBC % 0 Sodium 135 L Potassium 3.7 Chloride 102 Carbon Dioxide 26.2 Anion Gap 7 BUN 5 L Creatinine 0.6 Estim Creat Clear Calc 95.8 eGFR > 60 BUN/Creatinine Ratio 8 L Glucose [address] Glu mg/dL 100 Hemoglobin A1c 5.1 Calculated Osmolality 267 L Calcium 8.4 Corrected Calcium 8.6 Magnesium 1.8 Total Bilirubin 0.9 D AST 33 ALT 36 Alkaline Phosphatase 88 Total Protein 5.9 Albumin 3.8 D Globulin 2.1 L Albumin/Globulin Ratio 1.8 Triglycerides 59 Cholesterol 131 L LDL Cholesterol, Calc 74 HDL Cholesterol 45 Cholesterol/HDL Ratio 2.9 L Quality Measures Quality Measures sepsis Current suspected stage: ruled out Possible source: genitourinary Blood cultures ordered: yes Antibiotic ordered: Yes Assessment & Plan Assessment Current Active Medications: Generic Name Dose Route Start Last Admin Trade Name Freq PRN Reason Stop Dose Admin Acetaminophen 650 mg 09/18/24 12:22 Acetaminophen 325 Mg Tablet PO 10/18/24 12:21 Q6H PRN paiN(1-3) and Fever >100.4 Dextrose 25 ml 09/18/24 12:22 Dextrose 50%-Water Inj 50 Ml Syringe IV 10/18/24 12:21 Q15MIN PRN BG 50-70 responsive npo pt Dextrose 50 ml 09/18/24 12:22 Dextrose 50%-Water Inj 50 Ml Syringe IV 10/18/24 12:21 Q15MIN PRN BG <50 OR BG <70 & pt unresponsive Doxycycline Hyclate 100 mg 09/18/24 21:00 09/19/24 09:41 Doxycycline 100 Mg Tablet PO 09/25/24 20:59 100 mg BID MARIAH Administration Glucagon 1 mg 09/18/24 12:22 Glucagon Inj 1 Mg Vial IM Q15MIN PRN BG <70, and no IV access Ceftriaxone Sodium/Dextrose 50 mls @ 100 mls/hr 09/19/24 09:00 09/19/24 09:41 Rocephin/D5w 1gm Iv Premix IV 09/26/24 08:59 100 mls/hr QDAY MARIAH Administration Lactated Ringer's 1,000 mls @ 75 mls/hr 09/18/24 12:45 09/19/24 19:43 Lactated Ringers IV 10/18/24 12:44 75 mls/hr .[id number] MARIAH Administration Insulin Human Lispro 0 unit 09/18/24 17:00 09/19/24 13:06 Insulin Lispro (Admelog) 1 Unit/0.01 Ml Unit SC 10/18/24 16:59 Not Given AC MARIAH Protocol Lactulose 20 gm 09/19/24 12:15 09/19/24 13:22 Lactulose Syrup 20 Gm/30 Ml Udc PO 10/19/24 12:14 20 gm QDAY MARIAH Administration Protocol Morphine Sulfate 1 mg 09/18/24 18:45 09/19/24 17:18 Morphine Sulf Inj 10 Mg/Ml Vial IVP 09/23/24 18:44 1 mg Q4HR PRN Administration PAIN Pantoprazole Sodium 40 mg 09/18/24 12:25 09/19/24 09:40 Pantoprazole Inj 40 Mg Vial IVP 10/18/24 12:24 40 mg QDAY MARIAH Administration Sennosides 1 tab 09/18/24 12:22 Senna Tablet PO 10/18/24 12:21 QDAY PRN constipation Protocol Plan 58-year-old female with past medical history of recurrent UTIs, hypertension, depression, anxiety, GERD, DM2, and fusion of cervical spine was admitted to the hospital on 09/18/2024 for UTI with possible pyelonephritis. #Complicated UTI #R pyelonephritis #Leukocytosis #Hx of recurrent UTIs ?Patient came in with dysuria, suprapubic pain, and subjective fever. ? Patient met SIRS criteria 3 out of 4 with leukocytosis, tachycardia, and fever ? Patient does not have any endorgan damage at this time therefore it is less likely sepsis ? UA was positive for bacteria ?Patient got 2.5 L bolus in the ED and 1 g of Rocephin -CT abd/pelv showed changes consistent with R pyelonephritis. Plan: ? Rocephin 1 g daily [09/18/2024?] ? Blood cultures negative for 24 hrs - Urine Cx growing GPC, specification pending ? Will continue to monitor #Intractable nausea and vomiting, resolved #Prolonged QTc ?Patient has been having nausea and vomiting since Tuesday ? Mostly secondary to increased dose of Ozempic from 0.25 mg to 0.5 mg weekly. ? Order EKG and showed Qtc 471 Plan: ?Stopped Zofran and Azithromycin due to QTc prolongation -Repeat EKG with normal QTc ? Will continue to monitor #Community-acquired pneumonia ? Patient denies any coughing or shortness of breath ? Chest x-ray that showed right base pneumonia -azithromycin x1 (stopped after EKG showed prolonged qtc) Plan: ?Continue Rocephin, and doxycycline BID [09/18/2024?] ?Sputum cultures ordered ? Will continue to monitor #Hx of hypertension ? Patient's blood pressure has been stable during the hospital admission ? Hold off on antihypertensive medication for now in the setting of normotension and to avoid any shock #Hx of DM2 ?Patient's glucose was 177 on admission ? A1c 5.1 ? DC ISS ? Hypoglycemia protocol ordered ? Will continue to monitor #Hx of GERD ? Start Protonix #Hx of cervical spine fusion ? Pain management medication as needed ordered #Hx of anxiety and depression ? Stopped taking medications few months back Disposition: Patient admitted to med surg for UTI continue Abx, avoid qtc prolonging meds. Diet: PUD/GERD GI prophylaxis: protonix DVT prophylaxis: SCDs Code: Full code The case was discussed with my attending MD Sukumar Scott MD, PGY2 Attending Provider Attestation/Addendum 58-year-old female with history of recurrent UTI was admitted for pyelonephritis. She she denies kidney stones. She has headache, nausea. She denies chest pain. The patient is not short of breath. She is on antibiotic treatment. Follow-up urine and blood culture results. Discussed with housestaff
[2024-09-19] MEDS: PANTOPRAZOLE INJ 40 MG VIAL IV (20:24)
[2024-09-19] MEDS: ACETAMINOPHEN 500 MG TABLET 1000 MG PO (20:43)
[2024-09-20] VITALS (7 sets, daily range): BP systolic 118–156; BP diastolic 74–97; PULSE 64–92; RESP 16–97; TEMP 36.1–37.1; O2SAT 95–98
[2024-09-20] MEDS: MORPHINE SULF INJ 10 MG/ML VIAL IVP ×2 (04:34→10:46)
[2024-09-20] MEDS: ACETAMINOPHEN 500 MG TABLET 1000 MG PO (05:49)
[2024-09-20 06:20] LABS: Basophils % (Auto) 0 % (0-2.5); Eosinophils % (Auto) 1 % (0-10); Hematocrit 33.3 % (36.0-46.0); Hemoglobin 11.8 g/dL (12.0-16.0); Immature Granulocytes % (Auto) 0 % (0-0); Immature Granulocytes Auto 0.02 Thou/mm3 (0.00-0.00); Lymphocytes % (Auto) 16 % (10-50); Mean Corpuscular HGB Conc 35.4 g/dl (31.0-37.0); Mean Corpuscular Hemoglobin 31.2 pg (25.0-35.0); Mean Corpuscular Volume 88 fL (80-100); Monocytes # (Auto) 0.4 Thou/mm3 (0.0-0.8); Monocytes % (Auto) 7 % (0-12); Neutrophils # (Auto) 4.7 Thou/mm3 (1.8-7.7); Neutrophils % (Auto) 76 % (37-80); Nucleated Red Blood Cell % 0 /100 WBC (0); Platelet Count 133 Thou/mm3 (140-440); RDW Standard Deviation 39.4 fL (36.4-46.3); Red Blood Count 3.78 Miln/mm3 (4.00-5.20); White Blood Count 6.3 Thou/mm3 (3.6-11.0)
[2024-09-20 06:34] LABS: Alanine Aminotransferase 34 U/L (10-49); Albumin, Serum 3.8 gm/dL (3.5-5.0); Albumin/Globulin Ratio 1.9 (1.2-2.2); Alkaline Phosphatase 86 U/L (46-116); Anion Gap 8 (7-16); Aspartate Amino Transferase 28 U/L (0-34); BUN/Creatinine Ratio 8 Ratio (12-20); Bilirubin,Total 0.5 mg/dL (0.3-1.2); Blood Urea Nitrogen < 5 mg/dL (9-23); Calcium 8.8 mg/dL (8.3-10.6); Carbon Dioxide 26.9 mMol/L (20.0-31.0); Chloride 104 mMol/L (98-107); Creatinine (Component) 0.6 mg/dL (0.6-1.3); Estimated Creatinine Clearance 95.8 mL/min (>60); Glucose 97 mg/dL (74-106); Magnesium 1.8 mg/dL (1.6-2.6); Osmolality,Calculated 274 (275-295); Potassium 3.5 mMol/L (3.4-5.1); Sodium 139 mMol/L (136-145); Total Protein 5.8 gm/dL (5.7-8.2); eGFR > 60 See Note
[2024-09-20] MEDS: POTASSIUM CHLORIDE 20 mEq TABCR 40 MEQ PO (08:50)
[2024-09-20] MEDS: PANTOPRAZOLE INJ 40 MG VIAL IVP (09:50)
[2024-09-20] MEDS: DOXYCYCLINE 100 MG TABLET PO ×2 (09:50→20:45)
[2024-09-20] MEDS: LACTULOSE SYRUP 20 GM/30 ML UDC PO (09:55)
[2024-09-20] MEDS: cefTRIAXone/D5w 1gm IV premix 50 ML IV (10:47)
--- NOTE | 2024-09-20 11:15 | PD.RESPRO ---
Documentation for date of: 09/20/24 Subjective Subjective Interval history: Patient seen at bedside this morning. Yesterday evening patient did spike a fever of 101.7. She also complains of headaches this morning as well as nausea, but no visible vomiting today. Will switch patient's pain medication to ketorolac 15 mg every 6 hours. Patient's urine cultures did grow E. coli pansensitive. Will continue with ceftriaxone and doxycycline for now. No other complaints at this time. Exam Vital Signs Temp Pulse Resp BP Pulse Ox O2 Del Method 98.1 F 89 18 151/97 H 97 Room Air 09/20/24 08:00 09/20/24 10:46 09/20/24 10:46 09/20/24 08:00 09/20/24 08:00 09/20/24 08:00 Narrative Exam General: A/O x3, mild distress, chivering, well-nourished, well-developed Eyes: PERRL, EOMI. Anicteric, vision grossly intact, no papilledema seen in fundoscopy Ears: No ear pain, no ear discharge, Hearing grossly intact. Nose: No nasal discharge. Mouth/Throat: Moist mucous membranes, no redness, no lesions. Neck: Neck supple, non-tender, no cervical lymphadenopathy. Lungs: Clear TIKI to auscultation and percussion, No accessory muscle use. Cardio: Normal S1/S2, regular rhythm, no murmurs, no JVD Abdomen: Soft, supra pubic area tender, no palpable masses, peristalsis present, no guarding or rebound. Extremities: Symmetrical, no significant deformities, no peripheral edema , non-tender, peripheral pulses presents. Skin: No rashes, no lesions, warm to touch. Neuro: No focal neurological deficits. motor and sensory intact Psych: Cooperative, appropriate mood and effect. Objective Labs 09/20/24 04:49 09/20/24 04:49 Labs: Laboratory Results - last 24 hr 09/20/24 04:49 WBC 6.3 D RBC 3.78 L Hgb 11.8 L Hct 33.3 L MCV 88 MCH 31.2 MCHC 35.4 RDW Std Deviation 39.4 Plt Count 133 L Neut % (Auto) 76 Lymph % (Auto) 16 [place]ether % (Auto) 7 Eos % (Auto) 1 Baso % (Auto) 0 Neut # (Auto) 4.7 Lymph # (Auto) 1.0 Meriwether # (Auto) 0.4 Eos # (Auto) 0.0 Baso # (Auto) 0.0 Immature Gran # (Auto) 0.02 H Absolute Nucleated RBC 0.00 Immature Gran % 0 Nucleated RBC % 0 Sodium 139 Potassium 3.5 Chloride 104 Carbon Dioxide 26.9 Anion Gap 8 BUN < 5 L Creatinine 0.6 Estim Creat Clear Calc 95.8 eGFR > 60 BUN/Creatinine Ratio 8 L Glucose 97 Calculated Osmolality 274 L Calcium 8.8 Corrected Calcium 9.0 Magnesium 1.8 Total Bilirubin 0.5 AST 28 ALT 34 Alkaline Phosphatase 86 Total Protein 5.8 Albumin 3.8 Globulin 2.0 L Albumin/Globulin Ratio 1.9 Quality Measures Quality Measures sepsis Current suspected stage: ruled out Possible source: genitourinary Blood cultures ordered: yes Antibiotic ordered: Yes Assessment & Plan Assessment Current Active Medications: Generic Name Dose Route Start Last Admin Trade Name Freq PRN Reason Stop Dose Admin Acetaminophen 1,000 mg 09/20/24 11:04 Acetaminophen 500 Mg Tablet PO 10/18/24 12:21 Q6H PRN paiN(1-3) and Fever >100.4 Doxycycline Hyclate 100 mg 09/18/24 21:00 09/20/24 09:50 Doxycycline 100 Mg Tablet PO 09/25/24 20:59 100 mg BID MARIAH Administration Ceftriaxone Sodium/Dextrose 50 mls @ 100 mls/hr 09/19/24 09:00 09/20/24 10:47 Rocephin/D5w 1gm Iv Premix IV 09/26/24 08:59 100 mls/hr QDAY MARIAH Administration Lactated Ringer's 1,000 mls @ 75 mls/hr 09/18/24 12:45 09/19/24 19:43 Lactated Ringers IV 10/18/24 12:44 75 mls/hr .[id number] MARIAH Administration Ketorolac Tromethamine 15 mg 09/20/24 11:01 Ketorolac Inj 30 Mg/Ml Vial IVP 09/25/24 11:00 Q6HR PRN PAIN SCALE 4-10(Mod-Sev Lactulose 20 gm 09/19/24 12:15 09/20/24 09:55 Lactulose Syrup 20 Gm/30 Ml Udc PO 10/19/24 12:14 20 gm QDAY MARIAH Administration Protocol Pantoprazole Sodium 40 mg 01/21/25 12:25 09/20/24 09:50 Pantoprazole Inj 40 Mg Vial IVP 10/18/24 12:24 40 mg QDAY MARIAH Administration Sennosides 1 tab 09/18/24 12:22 Senna Tablet PO 10/18/24 12:21 QDAY PRN constipation Protocol Plan 58-year-old female with past medical history of recurrent UTIs, hypertension, depression, anxiety, GERD, DM2, and fusion of cervical spine was admitted to the hospital on 09/18/2024 for UTI with possible pyelonephritis. #UTI, E. Coli #R pyelonephritis #Leukocytosis #Hx of recurrent UTIs ?Patient came in with dysuria, suprapubic pain, and subjective fever. ? Patient met SIRS criteria 3 out of 4 with leukocytosis, tachycardia, and fever ? Patient does not have any endorgan damage at this time therefore it is less likely sepsis ? UA was positive for bacteria ?Patient got 2.5 L bolus in the ED and 1 g of Rocephin -CT abd/pelv showed changes consistent with R pyelonephritis. ?Blood cultures negative and urine cultures grew E. Coli Plan: ? Rocephin 1 g daily [09/18/2024?] ? Will continue to monitor #Headache ? Patient continues to have headaches, frontal ?DDx migrainous versus increased intracranial pressure ? Patient states that with morphine and Toradol has gotten better, but still present in between. ? There was no papilledema seen on funduscopy Plan: ?Toradol 50 mg every 6 for pain as needed ? Will continue to monitor #Intractable nausea and vomiting #Prolonged Qtc, resolved ?Patient has been having nausea and vomiting since Tuesday ? Mostly secondary to the suprapubic pain experienced with a UTI ?Patient got a total of 12 g of Zofran overnight and 5 g of metoclopramide ? Order EKG and showed Qtc 471 -Latest EKG showed normal QTc Plan: ?Stopped Zofran and Azithromycin due to QTc prolongation -Avoid QTc prolonging medications ? Will continue to monitor #Community-acquired pneumonia ? Patient denies any coughing or shortness of breath ? Chest x-ray that showed right base pneumonia - Stopped azithromycin after QTC normalized, (was stopped after EKG showed prolonged qtc) Plan: ?Continue Rocephin and doxycycline BID [09/18/2024?] ?Sputum cultures ordered ? Will continue to monitor #Hx of hypertension ? Patient's blood pressure has been stable during the hospital admission ? Hold off on antihypertensive medication for now in the setting of normotension and to avoid any shock #Hx of DM2 ?Patient's glucose was 177 on admission ? A1c 5.1 Plan: ?Will continue to monitor #Hx of GERD ? Continue Protonix #Hx of cervical spine fusion ? Pain management medication as needed ordered #Hx of anxiety and depression ? Restarted Zoloft Disposition: Patient admitted to med surg for UTI, E. coli continue Abx, avoid qtc prolonging meds. Diet: PUD/GERD GI prophylaxis: protonix DVT prophylaxis: SCDs Code: Full code Case disclosed with Attending Dr. Chávez and My senior Dr. Dao PGY2. Wagner Valdez PGY1 Senior Resident Attestation: 58-year-old female with past medical history of recurrent UTIs, hypertension, depression, anxiety, GERD, DM2, and fusion of cervical spine was admitted to the hospital on 09/18/2024 for UTI with possible pyelonephritis. She reported still having severe headache occasionally and also had an episode of fever last night. Her vitals this morning has been stable. Labs at baseline. Continue with ceftriaxone and docy for UTI and PNA. I agree with the above mentioned plans. Sukumar Dao MD, PGY2 Attending Provider Attestation/Addendum 58-year-old female with diabetes hypertension admitted for recurrent UTI. The patient received morphine for headaches. She appeared to be constipated. She threw up her lactulose. Dulcolax suppository was ordered this afternoon. Discussed with housestaff.
[2024-09-20] MEDS: RINGERS LACTATED 1000 ML 1,000 ML 75 ML IV (12:00)
--- NOTE | 2024-09-20 12:12 | XR_ITS ---
Examination: Abdomen AP single view Technique: AP portable supine abdomen, single view Exam date and time: September 20, 2024 1259 hours Indications: Distended abdomen this week FINDINGS: Moderate stool throughout the colon No obstruction No free air Surgical clips upper right abdomen IMPRESSION: Moderate stool throughout the colon
[2024-09-20] MEDS: KETOROLAC INJ 30 MG/ML VIAL 15 MG IVP ×2 (13:54→20:44)
[2024-09-20] MEDS: bisacodyL 10 MG SUPP PR (15:20)
[2024-09-20] MEDS: AZITHROMYCIN 250 MG TABLET 500 MG PO (17:50)
[2024-09-21] VITALS: BP 143/98; PULSE 90; RESP 17; TEMP 36.6; O2SAT 96
[2024-09-21] MEDS: ACETAMINOPHEN 500 MG TABLET 1000 MG PO (00:53)
[2024-09-21] MEDS: RINGERS LACTATED 1000 ML 1,000 ML 75 ML IV (01:06)
[2024-09-21] MEDS: KETOROLAC INJ 30 MG/ML VIAL 15 MG IVP (03:03)
[2024-09-21 04:00] VITALS: BP 140/86; PULSE 79; RESP 17; TEMP 36.8; O2SAT 95
[2024-09-21] MEDS: SUMAtriptan INJ 6 MG/0.5 ML VIAL SC ×2 (04:06→12:23)
[2024-09-21 06:11] LABS: Basophils % (Auto) 0 % (0-2.5); Eosinophils # (Auto) 0.1 Thou/mm3 (0.0-0.5); Eosinophils % (Auto) 2 % (0-10); Hematocrit 36.7 % (36.0-46.0); Immature Granulocytes % (Auto) 0 % (0-0); Immature Granulocytes Auto 0.02 Thou/mm3 (0.00-0.00); Lymphocytes # (Auto) 1.6 Thou/mm3 (1.0-4.8); Lymphocytes % (Auto) 26 % (10-50); Mean Corpuscular HGB Conc 35.4 g/dl (31.0-37.0); Mean Corpuscular Volume 88 fL (80-100); Monocytes # (Auto) 0.8 Thou/mm3 (0.0-0.8); Monocytes % (Auto) 12 % (0-12); Neutrophils # (Auto) 3.7 Thou/mm3 (1.8-7.7); Neutrophils % (Auto) 60 % (37-80); Nucleated Red Blood Cell % 0 /100 WBC (0); Platelet Count 180 Thou/mm3 (140-440); RDW Standard Deviation 38.9 fL (36.4-46.3); Red Blood Count 4.19 Miln/mm3 (4.00-5.20); White Blood Count 6.2 Thou/mm3 (3.6-11.0)
[2024-09-21 06:57] LABS: Alanine Aminotransferase 39 U/L (10-49); Albumin, Serum 4.5 gm/dL (3.5-5.0); Albumin/Globulin Ratio 1.9 (1.2-2.2); Alkaline Phosphatase 100 U/L (46-116); Anion Gap 12 (7-16); Aspartate Amino Transferase 30 U/L (0-34); BUN/Creatinine Ratio 8 Ratio (12-20); Bilirubin,Total 0.4 mg/dL (0.3-1.2); Blood Urea Nitrogen 5 mg/dL (9-23); Calcium 9.7 mg/dL (8.3-10.6); Calcium (Corrected) 9.7 mg/dL (8.5-10.1); Carbon Dioxide 25.4 mMol/L (20.0-31.0); Chloride 102 mMol/L (98-107); Creatinine (Component) 0.6 mg/dL (0.6-1.3); Estimated Creatinine Clearance 95.8 mL/min (>60); Globulin 2.4 gm/dL (2.3-3.5); Glucose 72 mg/dL (74-106); Osmolality,Calculated 273 (275-295); Potassium 3.8 mMol/L (3.4-5.1); Sodium 139 mMol/L (136-145); Total Protein 6.9 gm/dL (5.7-8.2); eGFR > 60 See Note
[2024-09-21 08:00] VITALS: BP 151/101; PULSE 88; RESP 17; TEMP 36.4; O2SAT 98
[2024-09-21] MEDS: DOXYCYCLINE 100 MG TABLET PO (08:18)
[2024-09-21] MEDS: cefTRIAXone/D5w 1gm IV premix 50 ML IV (08:19)
[2024-09-21] MEDS: PANTOPRAZOLE INJ 40 MG VIAL IVP (08:19)
[2024-09-21 12:00] VITALS: BP 154/102; PULSE 84; RESP 16; TEMP 36.2; O2SAT 99
[2024-09-21 12:24] VITALS: BP 151/101; PULSE 85
[2024-09-21] MEDS: VALSARTAN 80 MG TABLET 160 MG PO (12:24)
--- NOTE | 2024-09-21 14:50 | PD.RESDS ---
Planned Discharge Date 09/21/24 DS: Providers Provider Date of admission: 09/18/24 12:22 Primary care physician: Homar Hernandez MD Admitting Provider: Stephanie Agee MD Attending Provider on Admission: Bobo Chávez MD Consults: 09/19/24 21:40 Referral [facility] Routine Comment: pt request prayer at bedside Attending Provider on DC: Delgado Kolb MD Discharging Provider: Delgado Kolb MD DS: Diagnosis Problem List Completed Was Problem List Reviewed/Reconciled?: Yes Hospital Course Hospital Course Hospital course: 58-year-old female with past medical history of recurrent UTIs, hypertension, depression, anxiety, GERD, DM2, and fusion of cervical spine was admitted to the hospital on 09/18/2024 for UTI, E. Coli with R pyelonephritis. Came in to the ED with complaints of subjective fevers, headaches, and vomiting as well as burning sensation when she urinates. Initially patient came in tachycardic and afebrile, but this morning patient was tachycardic and febrile. Initial labs were relevant for leukocytosis (16.1), mild hyperbilirubinemia (1.5), and UA was positive for bacteria. Initial imaging included chest x-ray which showed some right base pneumonia and head CT which was unremarkable. In the ED patient received 1 dose of ceftriaxone as well as 2.5 L NS bolus. Patient was treated with antibiotics and with fluids. Her urine culture did grow E. coli pansensitive. Throughout her hospital stay patient remained stable, but did develop headaches which were continuous and were refractory to Toradol. She also continued to have nausea and vomiting, which could have been associated to headaches. Patient was given sumatriptan x 1 overnight prior to discharge and it did provide relief to the patient more than Toradol or other pain medications. At the time of discharge patient was stable enough to be discharged home. Discharge plan: Please follow-up with your PCP within 1 week of discharge. You have been started on cephalexin 500 mg 3 times daily for 7 days for UTI treatment You have been started on sumatriptan 25 mg as needed for migraines max 200 mg in 24 hours and can repeat those after 2 hours of initial dose. Continue with all other medicines as prescribed before, as your blood sugar and A1c was stable, continue with Ozempic 0.25 Mg weekly and do not increase the dose. Recommended to return back to emergency department if your symptoms persist or worsens. Problem list: #UTI, E. Coli #R pyelonephritis #Leukocytosis #Hx of recurrent UTIs #Headaches #Intractable nausea and vomiting #Prolonged Qtc, resolved #Community-acquired pneumonia Case disclosed with Attending Dr. Kolb and My senior Dr. Dao PGY2. Wagner Valdez PGY1 Senior Resident Attestation: I discussed with and supervised the senior internal auditor physician involved in the care of this patient. I personally saw and examined the patient and discussed the assessment and plan with the entire medicine team, including my attending. I agree with the discharge plan as documented above. Sukumar Dao MD PGY2 Internal Medicine Status at Discharge Overall status at discharge: patient is progressing back to baseline Time Spent with Patient Time attestation: Total time spent providing and/or coordinating discharge services:>35 min Exam Vital Signs Temp Pulse Resp BP Pulse Ox O2 Del Method 97.1 F 85 16 151/101 H 99 Room Air 09/21/24 12:00 09/21/24 12:24 09/21/24 12:00 09/21/24 12:24 09/21/24 12:00 09/21/24 12:00 Narrative Exam General: A/O x3, mild distress, chivering, well-nourished, well-developed Eyes: PERRL, EOMI. Anicteric, vision grossly intact, no papilledema seen in fundoscopy Ears: No ear pain, no ear discharge, Hearing grossly intact. Nose: No nasal discharge. Mouth/Throat: Moist mucous membranes, no redness, no lesions. Neck: Neck supple, non-tender, no cervical lymphadenopathy. Lungs: Clear TIKI to auscultation and percussion, No accessory muscle use. Cardio: Normal S1/S2, regular rhythm, no murmurs, no JVD Abdomen: Soft, non tender, no palpable masses, peristalsis present, no guarding or rebound. Extremities: Symmetrical, no significant deformities, no peripheral edema , non-tender, peripheral pulses presents. Skin: No rashes, no lesions, warm to touch. Neuro: No focal neurological deficits. motor and sensory intact Psych: Cooperative, appropriate mood and effect. Discharge Plan Plan Patient Disposition: HOME (Self Care) Care Plan Goals: Please follow-up with your PCP within 1 week of discharge. You have been started on cephalexin 500 mg 3 times daily for 7 days for UTI treatment You have been started on sumatriptan 25 mg as needed for migraines max 200 mg in 24 hours and can repeat those after 2 hours of initial dose. Continue with all other medicines as prescribed before, as your blood sugar and A1c was stable, continue with Ozempic 0.25 Mg weekly and do not increase the dose. -Recommended to return back to emergency department if your symptoms persist or worsens. Prescriptions/Referrals Prescriptions/Med Rec: New propranolol 20 mg tablet 20 mg PO BID Qty: 60 3RF sumatriptan succinate 25 mg tablet See Rx Instructions .ROUTE .COMPLEX Qty: 30 0RF Rx Instructions: take 1 tab at onset of headache; if no relief may repeat 1 tab after at least 2 hrs; max = 4 tabs/24 hr ciprofloxacin HCl 500 mg tablet 500 mg PO BID Qty: 8 0RF Continued valsartan 160 mg Tablet 160 mg PO HS pantoprazole 20 mg tablet,delayed release (DR/EC) 20 mg PO DAILY Patient Comments: TAKE 1 TABLET BY MOUTH ONCE DAILY sertraline [Zoloft] 25 mg Tablet 25 mg PO QDAY ibuprofen 800 mg tablet 800 mg PO Q8HR PRN (Reason: Pain) Patient Comments: TAKE 1 TABLET BY MOUTH EVERY 8 HOURS NEEDED WITH FOOD OR MILK Rx Instructions: generalized bone pain but more on left shoulder and back of neck, comes down to left arm pain. Ozempic 0.25 mg or 0.5 mg (2 mg/3 mL) pen injector 0.25 mg SUBCUT QWEEK Rx Instructions: Q mondays. Lowered dose to 0.25mg. Pt self administers med. lorazepam 1 MG tablet 1 mg PO QMORNING PRN (Reason: ANXIETY) Rx Instructions: NO longer prescribed. Pt Stopped seeing md(internal medicine) but pt still takes it if feels panicky and takes like half a tablet since she still has available at home. Referrals: Homar Hernandez MD [Primary Care Provider] - Patient/Caregiver Discharge Instructions Discharge Activity: activity as tolerated Other Discharge Activity Instructions:: Please follow-up with your Primary Care Provider within 1 week of discharge. You have been started on cephalexin 500 mg 3 times daily for 7 days for UTI treatment You have been started on sumatriptan 25 mg as needed for migraines max 200 mg in 24 hours and can repeat those after 2 hours of initial dose. Continue with all other medicines as prescribed before, as your blood sugar and A1c was stable, continue with Ozempic 0.25 Mg weekly and do not increase the dose. -Recommended to return back to emergency department if your symptoms persist or worsens. Education Materials: Anatomy of the Female Urinary Tract, Self-Care for Headaches Print Language: Swedish Stand Alone Forms: Sujatha Award Info., Patient Portal Info Letter Discharge Order Discharge Orders: Discharge (Routine); Ordered 09/21/24 Ordered By: Sukumar Dao Quality Discharge Quality Measures VTE prophylaxis MD Attestestation MD Attestation Face to face evaluation was performed by me. I have personally seen and examined the patient. I discussed the assessment and plan with the entire medicine team. I reviewed available medical records, imaging studies, laboratory results. I agree with the above subjective data, objective findings, assessment and plan except as corrected by me or noted below E Coli R side complicated UTI pyelonephritis, poa without association with urinary catheter - urine culture susceptibilities available, finish the course with 4 more days of po ciprofloxacin 500 mg BID starting tmr, pcp fu after dc
== END 2024-09-21 13:38 | disposition home or self-care (01) | DRG 689 ==
LOC: SERX 11:53 → SERHOLD 13:14 → S3SX 15:56
PROVIDERS: Emergency Medicine; Admitting Provider Internal Medicine; Emergency Provider Emergency Medicine; PCP Family Medicine; Visit Provider Internal Medicine
DX: N12 Tubulo-interstitial nephritis, not specified as acute or chronic (principal); J18.9 Pneumonia, unspecified organism; B96.20 Unspecified Escherichia coli [E. coli] as the cause of diseases classified elsewhere; E11.9 Type 2 diabetes mellitus without complications; R51.9 Headache, unspecified; F32.A Depression, unspecified; F41.9 Anxiety disorder, unspecified; K21.9 Gastro-esophageal reflux disease without esophagitis; I10 Essential (primary) hypertension; R94.31 Abnormal electrocardiogram [ECG] [EKG]; K59.00 Constipation, unspecified; Z90.49 Acquired absence of other specified parts of digestive tract; Z87.440 Personal history of urinary (tract) infections; Z98.1 Arthrodesis status; Z79.899 Other long term (current) drug therapy; Z79.85 Long-term (current) use of injectable non-insulin antidiabetic drugs
CPT/HCPCS: 36415; 70450; 71045; 74018; 74176; 80053; 80061; 80307; 81001; 83036; 83605; 83615; 83690; 83735; 83880; 84100; 84145; 84484; 85025; 85610; 85730; 87040; 87077; 87086; 87186; 87205; 87400; 87811; 93005; 96361; 96374; 96375; 99285; J0456; J0696; J1200; J1885; J2270; J2405; J2470; J2550; J2765; J3030; J3475; J3480; J7030; J7050; J7120; Q0162; A9270